=== PATIENT | male | born 2000 | race Caucasian/White ===

== ENCOUNTER 2020-10-27 13:10 | Emergency (ER) | payer BC ==
[2020-10-27 13:29] VITALS: BP 119/57; PULSE 54; TEMP 99
[2020-10-27] MEDS ORDERED: SULFAMETHOXAZOLE/TRIMETHOPRIM 800MG/160MG D.S. TABLET PO ONE (13:46)
[2020-10-27] MEDS ORDERED: CEPHALEXIN MONOHYDRATE 500 MG CAPSULE (UD) PO ONE (13:46)
[2020-10-27] MEDS ORDERED: IBUPROFEN 600 MG TABLET (FP) PO ONE ×2 (13:46→14:11)
[2020-10-27 14:09] VITALS: BMI 23.1
[2020-10-27] MEDS ORDERED: SULFAMETHOXAZOLE/TRIMETHOPRIM 800MG/160MG D.S. TABLET ONE (14:11)
[2020-10-27] MEDS ORDERED: CEPHALEXIN MONOHYDRATE 250 MG CAPSULE (FP) ONE ×2 (14:11→14:12)
== END 2020-10-27 15:16 | disposition home or self-care (01) ==
LOC: FER 13:10
DX: L03.116 Cellulitis of left lower limb (principal)
CPT/HCPCS: 73630-TC-LT; 99283-25